=== PATIENT | female | born 1990 | race Caucasian/White ===

== ENCOUNTER 2017-08-27 15:07 | Emergency (ER) | payer BC ==
[~2017-08-27] VITALS: Ht 160 cm; Wt 81.4 kg
[~2017-08-27 15:07] MED LIST: AMOXICILLIN 8751 TAB PO; CEPHALEXIN500 M1 PO; CLEOCIN HC150 MG/CAP PO; FLAGYL500 MG PO; IBU600 MG; PERCOCET 325 MG1 TA2; PRENATAL1 TA1 PO; SLOW FE45 MG PO; ULTRAM 50MG TAB50 MG PO; YAZ 28 3 MG-0.01 TAB PO; ZOFRAN 4MG T4 MG/TAB PO; ZOFRAN8 MG PO
[2017-08-27 15:09] VITALS: BP 138/72; TEMP 98.9
[2017-08-27 15:47] LABS: TRICYCLIC ANTIDEPRESS URINE NEGATIVE
[2017-08-27 16:00] LABS: BASO # 0.1 (0.0-0.2); BASO % 0.7 % (0.0-2.0); EOS # 0.1 (0.0-0.7); EOS % 1.2 % (0-4.0); GRAN % 55.8 % (42.2-75.2); HEMATOCRIT 41.3 % (37.0-47.0); HEMOGLOBIN 13.7 g/dl (12.5-16.0); LYMPH # 3.2 (1.2-3.4); LYMPH % 35.7 % (20.0-51.0); MEAN CELL VOLUME 94 fl (80.0-100.0); MEAN CORPUSCULAR HEMOGLOBIN 31 pg (27.0-31.0); MEAN CORPUSCULAR HGB CONC 33 g/dl (33.0-37.0); MEAN PLATELET VOLUME 8.7 fl (7.4-10.4); MONO # 0.6 (0.1-0.6); MONO % 6.5 % (1.7-9.3); PLATELET COUNT 272 K/mm3 (130-400); RED BLOOD COUNT 4.39 M/mm3 (4.10-5.30); REDCELL DISTRIBUTION WIDTH-CV 11.8 % (11.5-14.5)
[2017-08-27 16:13] LABS: ALANINE AMINOTRANSFERASE 23 U/L (9-52); ALBUMIN 3.8 gm/dL (3.5-5.0); ALKALINE PHOSPHATASE 67 U/L (50-136); ANION GAP 8 mmol/L (7-16); AST,SGOT 17 U/L (15-37); BILIRUBIN,TOTAL 0.8 mg/dL (0.0-1.0); BLOOD UREA NITROGEN 11 mg/dL (7-17); CALCIUM 9.2 mg/dL (8.4-10.2); CARBON DIOXIDE 25 mmol/L (22-30); CHLORIDE 105 mmol/L (98-107); CREATININE, serum 0.91 mg/dL (0.52-1.25); GLUCOSE 93 mg/dL (74-106); POTASSIUM 3.9 mmol/L (3.4-5.0); SODIUM 138 mmol/L (137-145); TOTAL PROTEIN 6.6 gm/dL (6.4-8.2)
[2017-08-27] MEDS ORDERED: PAXIL 20MG20 MG PO (16:13)
[2017-08-27] MEDS ORDERED: SPRINTEC 35 MCG1 TAB PO (16:13)
[2017-08-27 16:15] LABS: ACETAMINOPHEN < 10 ug/mL (10-30); ALCOHOL(ethanol),MEDICAL < 10 mg/dL; SALICYLATE < 1.0 mg/dL
[2017-08-27] MEDS ORDERED: LAMICTAL 100MG100 MG PO (16:30)
[2017-08-27 19:00] VITALS: PULSE 82
== END 2017-08-27 19:01 | disposition home or self-care (01) ==
LOC: COL.ER 15:07
PROVIDERS: Emergency Medicine
DX: F32.9 Major depressive disorder, single episode, unspecified (principal)